=== PATIENT | male | born 1950 | race Caucasian/White ===

== ENCOUNTER 2017-08-06 13:11 | Emergency (ER) | payer MEDICARE, OTHER, SELFPAY ==
[2017-08-06 13:11] VITALS: BP 119/83; PULSE 98; RESP 18; TEMP 36.2; O2SAT 97; BMI 22.1
--- NOTE | 2017-08-06 13:58 | RAD_ITS ---
STUDY: X-RAY - LEFT KNEE REASON FOR EXAM: Male, 67 years old. Injury and pain TECHNIQUE: Four view(s) of the knee were obtained. COMPARISON: None. FINDINGS: The distal femur is unremarkable. The proximal tibia is unremarkable. Normal medial femorotibial compartment. Normal lateral femorotibial compartment. Normal patellofemoral articulation. There is no fullness above the patella. There are marked vascular calcifications. RAD/Knee 4 or More Views IMPRESSION: No acute abnormalities are seen in the left knee. Electronically Signed: Elsa Castellanos MD at 14:43 EST Tel Direct: [phone], Service support ,
--- NOTE | 2017-08-06 14:30 | NURSING ---
NO LW OR POA
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
== END 2017-08-06 15:16 | disposition home or self-care (01) ==
PROVIDERS: Emergency Provider Emergency Medicine; Family Provider Family Medicine; PCP Family Medicine
DX: M25.562 Pain in left knee (principal); R05 Cough; E11.9 Type 2 diabetes mellitus without complications; I10 Essential (primary) hypertension; I73.9 Peripheral vascular disease, unspecified; Z72.0 Tobacco use; Z79.84 Long term (current) use of oral hypoglycemic drugs; Z79.899 Other long term (current) drug therapy
CPT/HCPCS: 73564; 99282

== ENCOUNTER → 2017-09-27 10:58 | Outpatient (CLI) | payer MEDICARE, OTHER, SELFPAY ==
[2017-09-27 12:12] LABS: Absolute Lymphocyte Count 2.06 X10^3/ul (0.83-4.51); Absolute Neutrophil Count 4.4 X10^3/uL (2.0-7.7); Basophil# 0.03 X10^3/uL; Basophil% 0.4 % (0-1); Eosinophil# 0.31 X10^3/uL; Eosinophils% 4.3 % (0-5); Hemoglobin 12.6 g/dl (13.0-16.5); Lymphocyte # 2.06 X10^3/ul (4.0); Lymphocyte % 28.5 % (19-41); Mean Corp Hgb Conc 33.2 g/gl (32-36); Mean Corpuscular Hgb 29.7 pg (27.0-32.0); Mean Corpuscular Volume 89.6 fL (80-94); Monocyte# 0.43 X10^3/uL; Monocyte% 5.9 % (0-10); Neutrophil % 60.8 % (47-70); Platelet Count 184 K/mm3 (150-450); RBC Distribution Width CV 13.8 % (11.6-14.6); RBC Distribution Width SD 45.5 fl (35.1-43.9); Red Blood Count 4.24 M/mm3 (4.6-6.2); White Blood Count 7.2 K/mm3 (4.4-11.0)
[2017-09-27 12:16] LABS: POSITIVE COUNT NO; POSITIVE DIFFERENTIAL NO; POSITIVE MORPHOLOGY NO
[2017-09-27 12:43] LABS: Vitamin D,25 Hydroxy 18.4 ng/mL (29.95-100.01)
[2017-09-27 12:44] LABS: ALB/GLOB Ratio 0.9 RATIO (0.9-2.4); AST(SGOT) 17 U/L (15-37); Alanine Aminotransfer ALT/SGPT 16 U/L (16-61); Albumin, Serum 3.2 g/dL (3.2-5.0); Alkaline Phosphatase 83 U/L (45-117); Anion Gap 7 (5-15); BUN 28 mg/dL (7-18); BUN/Creat Ratio 16.1 RATIO (10-20); Calcium,Total 8.8 mg/dL (8.5-10.1); Chloride 107 mmol/L (98-107); Cholesterol 136 mg/dL (200); Creatinine, Serum 1.74 mg/dL (0.70-1.30); EST Glomerular Filtration Rate 42 mL/min (>60); Est Glom Filt Rate - Afr Amer 50 mL/min (>60); Globulin 3.7 g/dL (2.2-4.2); Glucose 71 mg/dL (74-106); High Density Lipoprotein 30 mg/dL; Potassium 4.4 mmol/L (3.5-5.1); Protein, Total 6.9 g/dL (6.4-8.2); Sodium Level 140 mmol/L (136-145); Triglycerides 251 mg/dL; Very Low Density Lipoprotein 50 mg/dL (5-40)
== END ==
PROVIDERS: Family Provider Family Medicine; PCP Family Medicine; Visit Provider Family Medicine
DX: E11.65 Type 2 diabetes mellitus with hyperglycemia (principal); R63.4 Abnormal weight loss; I10 Essential (primary) hypertension; E55.9 Vitamin D deficiency, unspecified
CPT/HCPCS: 36415; 80053; 80061; 82306; 84443; 85025

== ENCOUNTER 2017-11-10 16:44 | Emergency (ER) | payer OTHER, MEDICARE, SELFPAY ==
[2017-11-10 16:47] VITALS: BP 92/63; PULSE 110; RESP 18; TEMP 36.9; O2SAT 98; BMI 20.2
--- NOTE | 2017-11-10 16:53 | NURSING ---
NO OLD EKGS
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
--- NOTE | 2017-11-10 17:21 | RAD_ITS ---
STUDY: X-RAY CHEST REASON FOR EXAM: Male, 67 years old. Shortness of breath TECHNIQUE: 1 view COMPARISON: None. FINDINGS: Hyperexpansion without consolidation, atelectasis or a substantial pleural effusion. There is no demonstrated pleural abnormality. Normal size heart. Normal mediastinum and shirley. Normal visualized pulmonary arteries. There is atherosclerotic calcification of the aortic arch with tortuosity. Normal visualized thoracic spine. Normal visualized ribs, clavicles, and shoulders. There is no demonstrated abnormality of the visualized soft tissue structures of the upper abdomen. RAD/Chest 1 View (Portable) IMPRESSION: Hyperexpansion without other acute cardiopulmonary findings. Electronically Signed: Tracy Roth MD at 18:24 EDT , Service support ,
--- NOTE | 2017-11-10 17:21 | EKG12_ITS ---
Test Reason : WOUND CHECK Blood Pressure : / mmHG Vent. Rate : 102 BPM Atrial Rate : 102 BPM P-R Int : 150 ms QRS Dur : 066 ms QT Int : 318 ms P-R-T Axes : 071 021 043 degrees QTc Int : 414 ms Sinus tachycardia Otherwise normal ECG Confirmed by TREMAYNE REYES ([id number]), image editor SHERI PERRY ([id number]) on 11/20/2017 6:12:51 PM Referred By: MARIO Confirmed By:TREMAYNE REYES
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
[2017-11-10 17:38] LABS: Absolute Lymphocyte Count 2.68 X10^3/ul (0.83-4.51); Absolute Neutrophil Count 7.3 X10^3/uL (2.0-7.7); Basophil# 0.02 X10^3/uL; Basophil% 0.2 % (0-1); Eosinophil# 0.33 X10^3/uL; Hematocrit 38.5 % (40-54); Hemoglobin 13.3 g/dl (13.0-16.5); Lymphocyte # 2.68 X10^3/ul (4.0); Lymphocyte % 24.1 % (19-41); Mean Corp Hgb Conc 34.5 g/gl (32-36); Mean Corpuscular Hgb 29.6 pg (27.0-32.0); Mean Corpuscular Volume 85.6 fL (80-94); Mean Platelet Vol. 8.8 fl (6.2-12.0); Monocyte# 0.72 X10^3/uL; Monocyte% 6.5 % (0-10); Neutrophil # 7.33 X10^3/uL (2.7-7.7); Neutrophil % 65.8 % (47-70); POSITIVE COUNT NO; POSITIVE DIFFERENTIAL NO; POSITIVE MORPHOLOGY NO; Platelet Count 189 K/mm3 (150-450); RBC Distribution Width CV 13.5 % (11.6-14.6); RBC Distribution Width SD 42.2 fl (35.1-43.9); White Blood Count 11.1 K/mm3 (4.4-11.0)
[2017-11-10 17:53] LABS: Anion Gap 9 (5-15); BUN 48 mg/dL (7-18); BUN/Creat Ratio 23.5 RATIO (10-20); Calcium,Total 10.1 mg/dL (8.5-10.1); Chloride 98 mmol/L (98-107); Creatinine, Serum 2.04 mg/dL (0.70-1.30); EST Glomerular Filtration Rate 35 mL/min (>60); Est Glom Filt Rate - Afr Amer 42 mL/min (>60); Estimated Creatinine Clearance 32.35 ml/min; Glucose 148 mg/dL (74-106); Potassium 5.1 mmol/L (3.5-5.1); Sodium Level 133 mmol/L (136-145)
[2017-11-10] MEDS: 0.9% Normal Saline 1,000 ML 1000 ML IV (17:58)
[2017-11-10] MEDS: Diphth,Pertuss(Acell),Tet Vac 0.5 ML Vial IM (18:01)
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
[2017-11-10] MEDS: 0.9% Normal Saline 1,000 ML 150 ML IV (19:26)
[2017-11-10 19:45] VITALS: BP 147/80; PULSE 99; RESP 16; O2SAT 99
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
[2017-11-10 20:20] VITALS: BP 138/74; PULSE 96; RESP 16; O2SAT 98
== END 2017-11-10 20:43 | disposition home or self-care (01) ==
PROVIDERS: Emergency Provider Emergency Medicine; Family Provider Family Medicine; PCP Family Medicine
DX: I95.9 Hypotension, unspecified (principal); S80.812A Abrasion, left lower leg, initial encounter; I12.9 Hypertensive chronic kidney disease with stage 1 through stage 4 chronic kidney disease, or unspecified chronic kidney disease; E11.22 Type 2 diabetes mellitus with diabetic chronic kidney disease; N18.9 Chronic kidney disease, unspecified; N17.9 Acute kidney failure, unspecified; E78.00 Pure hypercholesterolemia, unspecified; M54.9 Dorsalgia, unspecified; Z72.0 Tobacco use; Z23 Encounter for immunization; Z79.84 Long term (current) use of oral hypoglycemic drugs; Z79.891 Long term (current) use of opiate analgesic; Z79.899 Other long term (current) drug therapy; V43.52XA Car driver injured in collision with other type car in traffic accident, initial encounter; Y93.I9 Activity, other involving external motion; Y92.410 Unspecified street and highway as the place of occurrence of the external cause; Y99.8 Other external cause status
CPT/HCPCS: 70450; 71045; 72125; 80048; 85025; 90471; 90715; 93005; 99285; J7030

== ENCOUNTER → 2017-11-17 15:00 | Outpatient (CLI) | payer MEDICARE, OTHER, SELFPAY ==
--- NOTE | 2017-11-17 15:00 | DT_ITS ---
This patient was seen during an EMR downtime November 13, 2017 - November 20, 2017. This patient may have a combination of paper and electronic documentation or all paper documentation. All documentation is viewable within the e-chart portion of [email or web address] for each patient visit.
[2017-11-21 16:49] LABS: BUN 17 mg/dL (7-18); Creatinine, Serum 1.73 mg/dL (0.70-1.30); EST Glomerular Filtration Rate 42 mL/min (>60); Est Glom Filt Rate - Afr Amer 51 mL/min (>60)
== END ==
PROVIDERS: Visit Provider Family Medicine
DX: N18.3 Chronic kidney disease, stage 3 (moderate) (principal)
CPT/HCPCS: 36415; 82565; 84520

== ENCOUNTER → 2017-11-21 08:03 | Outpatient (CLI) | payer MEDICARE, OTHER, SELFPAY ==
--- NOTE | 2017-11-21 08:11 | CDU_ITS ---
Reason For Study: carotid artery calcification Rt. Velocities/BP Lt. Velocities/BP Prox CCA 75.0/25.8 cm/sec. Prox CCA 75.6/26.4 cm/sec. Mid CCA 93.2/34.6 cm/sec. Mid CCA 76.2/26.4 cm/sec. Dist CCA 82.1/32.8 cm/sec. Dist CCA 79.7/27.0 cm/sec. Prox ICA 48.1/23.5 cm/sec. Prox ICA 65.7/25.2 cm/sec. Mid ICA 75.2/36.7 cm/sec. Mid ICA 70.4/29.3 cm/sec. Dist ICA 85.0/44.0 cm/sec. Dist ICA 62.7/29.9 cm/sec. Rt. ICA/CCA = .9. Lt. ICA/CCA = .9. Prox ECA 70.4/18.2 cm/sec. Prox ECA 82.1/12.9 cm/sec. Rt. Vert. 63.3/24.6 cm/sec. Lt. Vert. 50.4/21.1 cm/sec. Right Extracranial There is intimal thickening but no significant atherosclerotic plaque noted in the right common carotid artery. There is heterogeneous, irregular atherosclerotic plaque noted in the right internal carotid artery. The atherosclerotic plaque causes acoustic shadowing. There is heterogeneous, irregular atherosclerotic plaque noted in the right external carotid artery. Antegrade flow is noted in the right vertebral artery. Left Extracranial There is heterogeneous, smooth atherosclerotic plaque noted in the left common carotid artery. There is heterogeneous, irregular atherosclerotic plaque noted in the left internal carotid artery. The atherosclerotic plaque causes acoustic shadowing. There is heterogeneous, irregular atherosclerotic plaque noted in the left external carotid artery. Antegrade flow is noted in the left vertebral artery. Procedure Carotid Duplex [id number]. The exam was diagnostic. Exam performed in department. Interpretation Summary Mild (<50%) stenosis right extracranial internal carotid. Mild (<50%) stenosis left extracranial internal carotid. However, acoustic shadowing obscures visualization of portions of the left internal carotid artery lumen. Therefore, the degree of stenosis may exceed that based upon velocity criteria alone. In this regard, clinical correlation is advised. Flow within the vertebral arteries is antegrade bilaterally. Ordering Physician: Rolando Shelton Performed By: Luc Cuba RVT
== END ==
PROVIDERS: Family Provider Family Medicine; PCP Family Medicine; Visit Provider Family Medicine
DX: I65.23 Occlusion and stenosis of bilateral carotid arteries (principal)
CPT/HCPCS: 93880

== ENCOUNTER → 2018-01-26 10:32 | Outpatient (CLI) | payer MEDICARE, OTHER, SELFPAY ==
[2018-01-26 12:38] LABS: Hemoglobin A1c 7.2 % (4.2-6.3)
[2018-01-26 12:44] LABS: Anion Gap 8 (5-15); BUN 30 mg/dL (7-18); BUN/Creat Ratio 14.8 RATIO (10-20); Calcium,Total 10.2 mg/dL (8.5-10.1); Chloride 104 mmol/L (98-107); Creatinine, Serum 2.03 mg/dL (0.70-1.30); EST Glomerular Filtration Rate 35 mL/min (>60); Est Glom Filt Rate - Afr Amer 42 mL/min (>60); Glucose 214 mg/dL (74-106); Potassium 4.6 mmol/L (3.5-5.1); Sodium Level 137 mmol/L (136-145)
== END ==
PROVIDERS: Family Provider Family Medicine; PCP Family Medicine; Visit Provider Family Medicine
DX: I10 Essential (primary) hypertension (principal); E11.65 Type 2 diabetes mellitus with hyperglycemia
CPT/HCPCS: 36415; 80048; 83036

== ENCOUNTER → 2018-03-08 12:50 | Outpatient (CLI) | payer MEDICARE, OTHER, SELFPAY ==
--- NOTE | 2018-03-08 12:55 | RAD_ITS ---
STUDY: X-RAY - RIGHT FOOT CLINICAL: Male, 67 years old. Diabetic foot ulcer right great toe TECHNIQUE: 3 view(s) of the foot. COMPARISON: None. FINDINGS: Normal talus, calcaneus, and tarsal bones. Normal visualized subtalar, talonavicular, calcaneocuboid, tarsal and tarsometatarsal articulations. Normal metatarsi. There is degenerative arthrosis of the metatarsophalangeal joint of the hallux . Normal tibial and fibular sesamoid bones. Normal interphalangeal joint of the great toe. Normal phalanges of the great toe. Normal second through fifth metatarsophalangeal joints. Normal interphalangeal joints and phalanges of the lesser toes. There is non specific soft tissue swelling. RAD/Foot min 3 Views IMPRESSION: There is degenerative arthrosis of the metatarsophalangeal joint of the hallux . There is non specific soft tissue swelling. This may related to an infectious process. Electronically Signed: Bladimir Kennedy MD at 21:01 EDT , Service support ,
[2018-03-08 14:22] LABS: Absolute Lymphocyte Count 1.92 X10^3/ul (0.83-4.51); Absolute Neutrophil Count 9.2 X10^3/uL (2.0-7.7); Basophil# 0.02 X10^3/uL; Basophil% 0.2 % (0-1); Eosinophil# 0.09 X10^3/uL; Eosinophils% 0.7 % (0-5); Hematocrit 35.4 % (40-54); Hemoglobin 12.3 g/dl (13.0-16.5); Lymphocyte # 1.92 X10^3/ul (4.0); Lymphocyte % 15.6 % (19-41); Mean Corp Hgb Conc 34.7 g/gl (32-36); Mean Corpuscular Hgb 29.4 pg (27.0-32.0); Mean Corpuscular Volume 84.7 fL (80-94); Monocyte# 1.06 X10^3/uL; Monocyte% 8.6 % (0-10); Neutrophil # 9.15 X10^3/uL (2.7-7.7); Neutrophil % 74.6 % (47-70); Platelet Count 319 K/mm3 (150-450); RBC Distribution Width CV 13.9 % (11.6-14.6); RBC Distribution Width SD 42.2 fl (35.1-43.9); Red Blood Count 4.18 M/mm3 (4.6-6.2); White Blood Count 12.3 K/mm3 (4.4-11.0)
[2018-03-08 14:25] LABS: POSITIVE COUNT NO; POSITIVE DIFFERENTIAL NO; POSITIVE MORPHOLOGY NO
[2018-03-08 14:42] LABS: Erythrocyte Sedimentation Rate 22 mm/hr (0-20)
[2018-03-08 14:52] LABS: Anion Gap 11 (5-15); BUN 27 mg/dL (7-18); BUN/Creat Ratio 13.8 RATIO (10-20); Calcium,Total 10.6 mg/dL (8.5-10.1); Chloride 93 mmol/L (98-107); Creatinine, Serum 1.95 mg/dL (0.70-1.30); EST Glomerular Filtration Rate 37 mL/min (>60); Est Glom Filt Rate - Afr Amer 44 mL/min (>60); Glucose 311 mg/dL (74-106); Potassium 3.6 mmol/L (3.5-5.1); Prealbumin 14.8 mg/dL (20.0-40.0); Sodium Level 134 mmol/L (136-145); Thyroid Stim Hormone (TSH) 0.37 uIU/mL (0.358-3.74)
== END ==
PROVIDERS: Family Provider Family Medicine; PCP Family Medicine; Referring Provider Family Medicine; Visit Provider Family Medicine
DX: E11.621 Type 2 diabetes mellitus with foot ulcer (principal); R63.4 Abnormal weight loss
CPT/HCPCS: 36415; 73630; 80048; 84134; 84443; 85025; 85652; 86140; 87070; 87077; 87186; 87205

== ENCOUNTER 2018-03-18 20:09 | Inpatient (IN) | payer MEDICARE, OTHER, SELFPAY ==
[2018-03-18 20:10] VITALS: BP 133/80; PULSE 113; RESP 17; TEMP 36.8; O2SAT 95; BMI 18.0
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
[2018-03-18 21:27] LABS: Absolute Lymphocyte Count 2.34 X10^3/ul (0.83-4.51); Absolute Neutrophil Count 9.7 X10^3/uL (2.0-7.7); Basophil# 0.03 X10^3/uL; Basophil% 0.2 % (0-1); Eosinophil# 0.13 X10^3/uL; Hematocrit 39.5 % (40-54); Hemoglobin 13.3 g/dl (13.0-16.5); Lymphocyte # 2.34 X10^3/ul (4.0); Lymphocyte % 18.4 % (19-41); Mean Corp Hgb Conc 33.7 g/gl (32-36); Mean Corpuscular Hgb 28.8 pg (27.0-32.0); Mean Corpuscular Volume 85.5 fL (80-94); Mean Platelet Vol. 9.5 fl (6.2-12.0); Monocyte# 0.44 X10^3/uL; Monocyte% 3.5 % (0-10); Neutrophil # 9.74 X10^3/uL (2.7-7.7); Neutrophil % 76.6 % (47-70); POSITIVE COUNT NO; POSITIVE DIFFERENTIAL NO; POSITIVE MORPHOLOGY NO; Platelet Count 257 K/mm3 (150-450); RBC Distribution Width CV 14.3 % (11.6-14.6); RBC Distribution Width SD 44.6 fl (35.1-43.9); Red Blood Count 4.62 M/mm3 (4.6-6.2); White Blood Count 12.7 K/mm3 (4.4-11.0)
[2018-03-18 21:29] LABS: International Normalized Ratio 0.9; Partial Thromboplast Time 26.8 Seconds (24.1-36.2); Prothrombin Time (Protime)PT. 12.4 SECONDS (11.7-14.9)
[2018-03-18 21:37] LABS: Anion Gap 5 (5-15); BUN 34 mg/dL (7-18); BUN/Creat Ratio 19.5 RATIO (10-20); Calcium,Total 10.2 mg/dL (8.5-10.1); Chloride 100 mmol/L (98-107); Creatinine, Serum 1.74 mg/dL (0.70-1.30); EST Glomerular Filtration Rate 42 mL/min (>60); Est Glom Filt Rate - Afr Amer 50 mL/min (>60); Estimated Creatinine Clearance 32.76 ml/min; Glucose 344 mg/dL (74-106); Potassium 4.8 mmol/L (3.5-5.1); Sodium Level 135 mmol/L (136-145)
[2018-03-18 22:23] VITALS: RESP 18; O2SAT 98
--- NOTE | 2018-03-18 23:13 | HP.PCM_ITS ---
Problem List (1) Necrosis of toe Status: Acute (2) Diabetes Status: Chronic (3) CKD (chronic kidney disease) stage 3, GFR 30-59 ml/min Status: Chronic History of Present Illness Date of Admission: 03/18/18 Chief Complaint: Wound of right big toe The patient is a 67 year old M with a significant history of diabetes; hypertension; PAD status post bilateral lower extremity vascular surgery; smoker who presents with 2 weeks history of a wound of his right big toe that has progressively gotten worse. Reportedly a couple of months ago patient bumped his right toe into something. A wound developed on his right big toe which eventually healed. However last week; he once again bumped his toe into something. A tiny wound developed. But this wound has progressively gotten worse and it has turned black. His step daughter who is a nurse has been dressing the wound. Per ED doctors reports patient was getting ready to get into a wound clinic. Outpatient patient was started on clindamycin p.o. Patient has pain in his right big toe. He rates the severity of his pain as 8- 10. Elevating his leg helps with the pain; and dangling it worsens the pain. Patient reports that before this wound developed he had no feelings in his foot. He reports a home temperature of 101; and chills. Further he reports a spinning sensation whiles at home. He denies any nausea or vomiting. Past Medical History Past Medical History (Chronic Problems): Chronic Problems (Last Updated 03/19/18 @ 05:39 by Willi Cruz MD) Diabetes (Chronic) CKD (chronic kidney disease) stage 3, GFR 30-59 ml/min (Chronic) Medical History: Medical History (Last Updated 03/19/18 @ 05:39 by Willi Cruz MD) PAD (peripheral artery disease) I73.9 Allergies No Known Allergies Allergy (Verified 03/18/18 20:09) Home Medications: Ambulatory Orders Medication Instructions Recorded Atorvastatin Calcium [Lipitor] 40 mg PO QHS 02/14/15 Cholecalciferol (Vitamin D3) 1,000 units PO DAILY 02/14/15 [D3-2000] Gabapentin [Neurontin] 300 mg PO TID 02/14/15 Lisinopril/Hydrochlorothiazide 1 tablet PO DAILY 02/14/15 [Zestoretic 20/12.5 Tablet] Metformin HCl [Glucophage] 1,000 mg PO BIDCM 02/14/15 glipiZIDE [Glucotrol] 10 mg PO DAILY 02/14/15 Clindamycin HCl 300 mg PO TID 03/18/18 Escitalopram Oxalate [Lexapro] 10 mg PO DAILY 03/18/18 Surgical History: - - Carpal tunnel surgery; bilateral vascular surgery of lower extremities Lives: With Family Smoking Status: Current every day smoker Tobacco Use: Cigarettes Alcohol: None - *Family History Maternal History Items: Diabetes Paternal History Items: Diabetes, Heart Disease Review of Systems Constitutional: Reports: Chills, Fever. Denies: Weight Change HEENT: Denies: Head Aches, Sinus Congestion, Sinus Drainage Cardiovascular: Denies: Chest Pain, Palpitations Respiratory: Denies: Cough, Shortness of breath at rest, Sputum production Gastrointestinal: Denies: Abdominal Pain, Nausea, Vomiting Genitourinary: Denies: Dysuria Musculoskeletal: Denies: Joint Pain - Right big toe, Joint Tenderness - Mild at right big toe. Skin: Denies: Rash, Wounds Neurological: Denies: Numbness, Tingling, Focal weakness Psychiatric: Denies: Anxiety, Depression, Homicidal Ideations, Suicidal Ideations Hematologic/ Lymphatic: Denies: Easy Bruising, Easy Bleeding VTE Information - Inpt Only VTE Present on Admission: No VTE Mechan Device Prophylaxis: None VTE Pharm Prophylaxis ordered?: Yes Patient Problems: Active and Suspected Problems (Last Updated 03/19/18 @ 05:39 by Willi Cruz MD) Skin ulcer of right great toe with necrosis of muscle (Acute) Necrosis of toe (Acute) - Physical Exam General: Alert, Oriented x3, Cooperative HEENT: Atraumatic, PERRLA, EOMI, Normocephalic Neck: Supple, No JVD, Negative Carotid Bruits Lungs: Diminished Cardiovascular: No murmurs, Tachycardic Abdomen: Bowel Sounds Present, Soft, Non Tender Extremities: No edema, - - Right big toe necrotic with proximal wound. Skin: Rash Present - On bilateral legs Musculoskeletal: Tenderness - Mild at right big toe. Lymphatic: No Cervical, Supraclavicular, or Inguinal Adenopathy Neurological: Cranial nerves II-XII grossly intact Psych/Mental Status: Normal Affect, Appropriate Vital Signs Temp Pulse Resp BP Pulse Ox 98.3 F 113 H 18 133/80 H 98 03/18/18 20:10 03/18/18 20:10 03/18/18 22:23 03/18/18 20:10 03/18/18 22:23 Oxygen Delivery Method Room Air Weight: 57 kg Body Mass Index (BMI) 18.0 Laboratory Tests Past 24 Hrs 03/18/18 03/18/18 03/18/18 21:07 21:07 21:07 WBC 12.7 H RBC 4.62 Hgb 13.3 Hct 39.5 L MCV 85.5 MCH 28.8 MCHC 33.7 RDW 14.3 RDW Differential 44.6 H Plt Count 257 MPV 9.5 Immature Gran % (Auto) 0.300 Neut % (Auto) 76.6 H Lymph % (Auto) 18.4 L [place] % (Auto) 3.5 Eos % (Auto) 1.0 Baso % (Auto) 0.2 Absolute Neuts (auto) 9.7 H Absolute Lymphs (auto) 2.34 Total Counted Not Reportable PT 12.4 INR 0.9 APTT 26.8 Sodium 135 L Potassium 4.8 Chloride 100 Carbon Dioxide 30.0 Anion Gap 5 BUN 34 H Creatinine 1.74 H Estim Creat Clear Calc 32.76 Est GFR (MDRD) Af Amer 50 L Est GFR (MDRD) Non-Af 42 L BUN/Creatinine Ratio 19.5 Glucose 344 H Calcium 10.2 H Assessment/Plan All Active Problems (Last Updated 03/19/18 @ 05:39 by Willi Cruz MD) Skin ulcer of right great toe with necrosis of muscle (Acute) Necrosis of toe (Acute) The patient is a 67 year old M with a significant history of diabetes; hypertension; PAD status post bilateral lower extremity vascular surgery; smoker who presents with 2 weeks history of a wound of his right big toe that has progressively gotten worse and now is necrotic.. Necrotic diabetic wound of right great toe WBC mildly elevated at 12.7. With neutrophilic predominance. CRP unremarkable. ESR ordered. Patient received Ancef at emergency department Vancomycin and Zosyn ordered. Pharmacy to dose Vanco because of poor renal function. Podiatry consulted for possible source management. Infectious disease consulted to help optimize management. 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 If considering MRI with contrast consider consulting nephrology due to risk of nephrogenic systemic fibrosis in the setting of CKD. Bilateral lower extremity Doppler ordered. Trend CBC and BMP. Diabetes mellitus Blood glucose uncontrolled at time of admission Metformin held since he is just starting his hospitalization Basal and correction scale insulin ordered. Consider prandial glucose if necessary. A1c ordered. Hypertension Blood pressure fairly controlled on admission Hydrochlorothiazide continued. Tobacco abuse Counseled Nicotine patch ordered. Inpatient consult for smoking cessation. Protein calorie malnutrition BMI of 17.8 Glucerna shake 4 times per day. Nutritional consult PAD status post bilateral lower arterial surgery Bilateral lower extremity Doppler ordered. DVT prophylaxis Subcutaneous heparin. Code Visit Inpatient E&M: 93335 Init Hosp L3
[2018-03-18] MEDS: Cefazolin 1 GM/50 ML BAG IV (23:33)
--- NOTE | 2018-03-18 23:36 | ED.VISSUMM ---
- ER Visit Summary Date of Service: 03/18/18 Chief Complaint: Black big toe History of Present Illness: The patient is a 67 M who presents with necrosis of his right great toe that has been getting worse over the past few days. Daughter states that the patient had an abrasion on his proximal phalanx of his right great toe over the dorsal aspect 2 weeks ago. Daughter states the area became red and appeared to be infected. Daughter states that the blackness has been getting progressively worse over the past couple days. Patient states the pain is worse when he wraps it up and has pressure on the great toe. Patient states the pain improves when he elevates his foot. Patient admits to some decreased sensation over the right great toe. Patient also admits to some dizziness and lightheadedness. Patient admits to some chills with a temperature of 100.1. Physical Examination: Vital signs are stable. Patient is afebrile here. Patient is a mild tachycardia of 113. Oral mucosa is pink and moist. Neck is supple. Trachea is midline. There is no JVD noted. Heart was regular rate and rhythm. Lungs are clear and equal bilaterally. Abdomen is soft and nontender. Cranial nerves II through XII are intact. There are no focal motor deficits noted. Patient does have decreased sensation over the right great toe. Skin is warm and dry. There is an ulceration over the dorsal aspect of the right great toe over the proximal phalanx. There is no purulent drainage noted. There is some mild serous drainage. The rest of the right great toe is black and necrotic. The remaining physical exam is within normal limits. Test Results: Leukocytosis of 12.7. BUN was slightly elevated at 34 and creatinine was slightly elevated at 1.74. Glucose was 344. Patient was started on Ancef. Wound culture was obtained. X-ray of the right foot does not show any evidence of osteomyelitis. Emergency Department Course and Treatment: Patient was given a dose of Ancef here in the emergency department. Case was discussed with Dr. Cruz. He will admit the patient to the hospital. Patient understood and was agreeable with the plan. All questions were answered. Disposition: Admit to hospital Impression: Necrosis right great toe This note was generated with [employer] dictation software. It may contain incorrect words, spelling, and punctuation that were not noted in review of the chart prior to signing ED Disposition - Plan for ED Patient: Disposition: Acute Care Hospital [facility] Chief Complaint: Wound Diagnosis: Skin ulcer of right great toe with necrosis of muscle Referrals: Rolando Shelton MD [Primary Care Provider] -
[2018-03-19 00:07] VITALS: RESP 16; O2SAT 98
[2018-03-19 00:50] VITALS: BMI 17.7; BMI 17.8
--- NOTE | 2018-03-19 01:08 | NURSING ---
Pt has on wedding ring on left hand and a ring on right hand along with a cross necklace and watch that he states he will give to his daughter, Calli Encarnacion, when she visits him on 03/19/18.
[2018-03-19 01:18] LABS: CRP < 2.90 mg/L (0.0-3.0)
[2018-03-19 01:26] VITALS: BP 126/77; PULSE 93; RESP 20; TEMP 36.8; O2SAT 96
[2018-03-19] MEDS: 0.9% Normal Saline 1,000 ML 75 ML IV (02:12)
[2018-03-19 02:35] LABS: Bedside Glucose 145 mg/dL (70-110)
[2018-03-19] MEDS: Morphine 2 MG/ML Syringe IV ×3 (02:50→16:32)
[2018-03-19] MEDS: 0.9% NaCl Peripheral Flush Adult/Peds IV (02:51)
--- NOTE | 2018-03-19 03:15 | PCM.RX.CS ---
Consult Pharmacy has been consulted to manage selected antiobiotic: Vancomycin Type of Consult: New start Suspected Infection: Skin/Soft tissue Prior Doses of Antibiotics Received/Current Regimen: Medications Vancomycin HCl 750 mg/ Sodium (Chloride) 265 mls @ 250 mls/hr IV Q24H JOSE Discontinued Medications Vancomycin HCl 750 mg/ Sodium (Chloride) 265 mls @ 250 mls/hr IV X1 ONE Stop: 03/19/18 03:03 Last Admin: 03/19/18 02:50 Dose: 250 mls/hr Labs: Sodium 135 mmol/L (136-145) L 03/18/18 21:07 Potassium 4.8 mmol/L (3.5-5.1) 03/18/18 21:07 Chloride 100 mmol/L (98-107) 03/18/18 21:07 Carbon Dioxide 30.0 mmol/L (21.0-32.0) 03/18/18 21:07 Anion Gap 5 (5-15) 03/18/18 21:07 BUN 34 mg/dL (7-18) H 03/18/18 21:07 Creatinine 1.74 mg/dL (0.70-1.30) H 03/18/18 21:07 Est GFR (MDRD) Af Amer 50 mL/min (>60) L 03/18/18 21:07 Est GFR (MDRD) Non-Af 42 mL/min (>60) L 03/18/18 21:07 BUN/Creatinine Ratio 19.5 RATIO (10-20) 03/18/18 21:07 Glucose 344 mg/dL (74-106) H 03/18/18 21:07 Weight used for dosin.2 kg Estimated Creatinine Clearance: 33 Goal Trough: 15-20 mcg/mL Pharmacy Plan for Drug Dosing: Pharmacy Service will continue to monitor and adjust dosing as required. Follow-Up Labs: Trough Vancomycin Labs to be done on [date and time ordered]: 03/21/18 @[id number]
[2018-03-19] MEDS: Piperacil/Tazobactam 3.375 GM/50 ML ML IV ×2 (04:37→14:18)
[2018-03-19] MEDS: Heparin Injection (Vial) 5,000 UNIT/ML VIAL 5000 UNIT SC ×2 (06:24→14:18)
[2018-03-19 06:31] LABS: Bedside Glucose 136 mg/dL (70-110)
[2018-03-19 06:55] LABS: Absolute Neutrophil Count 5.9 X10^3/uL (2.0-7.7); Basophil# 0.03 X10^3/uL; Basophil% 0.3 % (0-1); Eosinophil# 0.21 X10^3/uL; Hematocrit 36.3 % (40-54); Hemoglobin 12.4 g/dl (13.0-16.5); Lymphocyte % 34.8 % (19-41); Mean Corp Hgb Conc 34.2 g/gl (32-36); Mean Corpuscular Hgb 29.5 pg (27.0-32.0); Mean Corpuscular Volume 86.2 fL (80-94); Mean Platelet Vol. 9.5 fl (6.2-12.0); Monocyte# 0.53 X10^3/uL; Monocyte% 5.1 % (0-10); Neutrophil # 5.89 X10^3/uL (2.7-7.7); Neutrophil % 56.9 % (47-70); Platelet Count 274 K/mm3 (150-450); RBC Distribution Width CV 14.2 % (11.6-14.6); RBC Distribution Width SD 43.8 fl (35.1-43.9); Red Blood Count 4.21 M/mm3 (4.6-6.2); White Blood Count 10.4 K/mm3 (4.4-11.0)
[2018-03-19 06:59] LABS: POSITIVE COUNT NO; POSITIVE DIFFERENTIAL NO; POSITIVE MORPHOLOGY NO
[2018-03-19 07:24] LABS: Anion Gap 6 (5-15); BUN 29 mg/dL (7-18); CRP < 2.90 mg/L (0.0-3.0); Calcium,Total 9.8 mg/dL (8.5-10.1); Chloride 105 mmol/L (98-107); Creatinine, Serum 1.32 mg/dL (0.70-1.30); EST Glomerular Filtration Rate 57 mL/min (>60); Est Glom Filt Rate - Afr Amer 69 mL/min (>60); Estimated Creatinine Clearance 42.58 ml/min; Glucose 132 mg/dL (74-106); Potassium 4.7 mmol/L (3.5-5.1); Sodium Level 139 mmol/L (136-145)
--- NOTE | 2018-03-19 08:28 | NURSING ---
wound photo: right great toe
[2018-03-19] MEDS: Gabapentin 300 MG Capsule PO ×3 (10:03→18:26)
[2018-03-19] MEDS: Glucerna Shake 120 ML LIQUID PO ×3 (10:03→18:26)
[2018-03-19] MEDS: Lisinopril 20 MG Tablet PO (10:03)
[2018-03-19] MEDS: Escitalopram Oxalate 10 MG Tablet PO (10:03)
[2018-03-19] MEDS: HYDROCHLOROTHIAZIDE 12.5 MG CAPSULE PO (10:03)
[2018-03-19] MEDS: oxyCODONE 5 MG Tablet PO ×3 (10:04→20:26)
[2018-03-19] MEDS: Senna Tablet 1 TABLET PO (10:04)
[2018-03-19 10:10] VITALS: BP 124/65; PULSE 95; RESP 18; TEMP 36.8; O2SAT 98
--- NOTE | 2018-03-19 10:50 | CASEMGMT ---
RN CM Face to Face with patient for initial transition planning/care coordination assessment. RN CM introduced self and role at [facility]. Patient sitting in chair, alert and oriented. Patient willing to participate in assessment and is able to answer all questions appropriately. Care providers, pharmacy, and demographics verified. Patient lives with daughter in 1 story home with ramp to enter home. Patient states he is independent at home. Patient has raised toilet seat, crutches, walker, and wheelchair at home. Patient wishes to discharge home, denies need for home health at this time, states daughter is a nurse. Patient states he has no further needs or concerns at this time. CM to follow for discharge planning needs that may arise. Disposition Plan: Patient to discharge home with family support and follow-up plans in place. Gretel ALVAREZ, RN, CM
[2018-03-19 11:09] VITALS: O2SAT 98
--- NOTE | 2018-03-19 12:17 | PCM.PROGNOTE ---
Patient Problems: Active and Suspected Problems (Last Updated 03/19/18 @ 05:39 by Willi Cruz MD) Skin ulcer of right great toe with necrosis of muscle (Acute) Necrosis of toe (Acute) Subjective: This 67-year-old diabetic male with a history of PAD was consulted to podiatry after being admitted through the emergency room for necrotic right great toe. The patient says overall he feels well. He says that he bumped his toe about 6 months ago and had a small wound that he was able to heal up. He says approximately 3 weeks ago he was walking with no shoes on and stubbed his toe again. Since then he has noticed the toe becoming black. He has been keeping the area dressed but has not done much to treat on his own. He relates that he has had vascular stenting done in his lower extremity approximately 20 years ago. He originally was going to be seen at the wound center this week, however he did not feel he should wait any longer and came to the ER and was admitted. He currently denies any feelings of nausea, vomiting, fever, or chills. - Physical Exam General: Alert, Oriented x3, Cooperative, No apparent distress Extremities: No Calf Tenderness - Negative Tom and Olivares sign bilateral, Diminished Peripheral Pulses, - - Capillary refill time is greater than 5 seconds to distal digits of the right foot Skin: Ulcer/ Wound - Necrotic halux of right foot. Dry gangrene involves tentire hallux circumferentially. There is no extending or streaking cellulitis. No purluence appreciated. Musculoskeletal: Tenderness - Very silght tenderness to right hallux Neurological: - - Epicritic sensation absent right lower extremity Psych/Mental Status: Normal Affect, Appropriate Vital Signs Temp Pulse Resp BP Pulse Ox 98.2 F 95 18 124/65 H 98 03/19/18 10:10 03/19/18 10:10 03/19/18 10:10 03/19/18 10:10 03/19/18 11:09 Oxygen Delivery Method Room Air Weight: 56.2 kg Body Mass Index (BMI) 17.7 Intake and Output for Last 24 Hours 03/17/18 03/18/18 03/19/18 23:59 23:59 23:59 Intake Total 488 / 488 Balance 488 / 488 Microbiology Past 72 Hours 03/18/18 21:10 Gram Stain - Final Wound Abcess - Toe Laboratory Tests Past 24 Hrs 03/18/18 03/18/18 03/18/18 21:07 21:07 21:07 WBC 12.7 H RBC 4.62 Hgb 13.3 Hct 39.5 L MCV 85.5 MCH 28.8 MCHC 33.7 RDW 14.3 RDW Differential 44.6 H Plt Count 257 MPV 9.5 Immature Gran % (Auto) 0.300 Neut % (Auto) 76.6 H Lymph % (Auto) 18.4 L [place] % (Auto) 3.5 Eos % (Auto) 1.0 Baso % (Auto) 0.2 Absolute Neuts (auto) 9.7 H Absolute Lymphs (auto) 2.34 Total Counted Not Reportable PT 12.4 INR 0.9 APTT 26.8 Sodium 135 L Potassium 4.8 Chloride 100 Carbon Dioxide 30.0 Anion Gap 5 BUN 34 H Creatinine 1.74 H Estim Creat Clear Calc 32.76 Est GFR (MDRD) Af Amer 50 L Est GFR (MDRD) Non-Af 42 L BUN/Creatinine Ratio 19.5 Glucose 344 H Hemoglobin A1c Calcium 10.2 H C-React Prot Ext Range 03/18/18 03/19/18 03/19/18 21:07 06:15 06:15 WBC 10.4 RBC 4.21 L Hgb 12.4 L Hct 36.3 L MCV 86.2 MCH 29.5 MCHC 34.2 RDW 14.2 RDW Differential 43.8 Plt Count 274 MPV 9.5 Immature Gran % (Auto) 0.900 Neut % (Auto) 56.9 Lymph % (Auto) 34.8 [place] % (Auto) 5.1 Eos % (Auto) 2.0 Baso % (Auto) 0.3 Absolute Neuts (auto) 5.9 Absolute Lymphs (auto) 3.60 Total Counted Not Reportable PT INR APTT Sodium 139 Potassium 4.7 Chloride 105 Carbon Dioxide 28.0 Anion Gap 6 BUN 29 H Creatinine 1.32 H Estim Creat Clear Calc 42.58 Est GFR (MDRD) Af Amer 69 Est GFR (MDRD) Non-Af 57 L BUN/Creatinine Ratio 22.0 H Glucose 132 H Hemoglobin A1c Calcium 9.8 C-React Prot Ext Range < 2.90 03/19/18 03/19/18 06:15 06:15 WBC RBC Hgb Hct MCV MCH MCHC RDW RDW Differential Plt Count MPV Immature Gran % (Auto) Neut % (Auto) Lymph % (Auto) [place] % (Auto) Eos % (Auto) Baso % (Auto) Absolute Neuts (auto) Absolute Lymphs (auto) Total Counted PT INR APTT Sodium Potassium Chloride Carbon Dioxide Anion Gap BUN Creatinine Estim Creat Clear Calc Est GFR (MDRD) Af Amer Est GFR (MDRD) Non-Af BUN/Creatinine Ratio Glucose Hemoglobin A1c 8.0 H Calcium C-React Prot Ext Range < 2.90 POC Glucose 03/19/18 03/19/18 06:23 02:17 POC Glucose 136 H 145 H Medical Necessity - Tobacco Use Smoking Status: Current every day smoker Tobacco Use: Cigarettes Assessment/Plan All Active Problems (Last Updated 03/19/18 @ 05:39 by Willi Cruz MD) Skin ulcer of right great toe with necrosis of muscle (Acute) Necrosis of toe (Acute) Dry Gangrene right halux DM PAD Other comorbidities Patient was examined and evaluated bedside. WBC is 10.4. Vital signs are stable. Blood cultures and right great toe cultures still pending. 3 View x rays taken of right foot show no signs of acute osseous destruction and no soft tissue emphysema. LEAS studies were performed that show decreased NAHED to a level that would suggest moderate vascular issues. I discussed this case with Dr. Vazquez. Since this patient is stable, I recommend this patient has a vascular surgery consult and workup prior to any further intervention taking place with the right hallux. He is in agreement with this plan. Patient may be transferred today. Right hallux was painted with betadine and then dressed with dry sterile dressing. Patient will continue to be monitored by podiatry while still in house.
[2018-03-19] MEDS: Insulin Lispro 100 UNIT/ML INSULN.PEN SQ ×2 (12:26→16:32)
[2018-03-19 12:36] LABS: Bedside Glucose 383 mg/dL (70-110)
--- NOTE | 2018-03-19 12:46 | CHAPLAIN ---
Type of Pastoral Visit _x__ Initial Visit ___ Follow-up Visit ___ On-call Visit ___ General Patient Visit ___ Spiritual Assessment ___ Family Conference ___ Bereavement ___ Rapid Response ___ Code Blue ___ Other (describe below) Pastoral Care Referral From _x__ Patient ___ Family ___ Nurse ___ Physician ___ Magneto Repairer ___ Lay Out Carpenter ___ Other (describe below) Sacrament/Intervention _x__ Active listening ___ Anointing ___ Orthodoxy ___ Bereavement ___ Communion ___ Marie exploration ___ _x__ Life review _x__ Prayer ___ Reconciliation ___ Sacrament of Sick _x__ Supportive presence ___ Wedding ___ Other (describe below) Pastoral Comments patient speaks of 's earlier this year; pt waiting for decisions to be made about his toes and just hopes to have relief; pt open to future visits from spiritual care
[2018-03-19 14:20] VITALS: BP 94/61; PULSE 99; RESP 18; TEMP 36.8; O2SAT 98
--- NOTE | 2018-03-19 15:12 | PCM.HP.ID ---
Problem List (1) Necrosis of toe Status: Acute Reason for Consult: necrotic toe Consulted by: Dr. Vazquez History of Present Illness: The patient is a 67 year old M with PAD, DM who presented with R 1st toe turning black for past few days. He hurt his toe several months ago, and it took a long time to heal. A week ago, he tripped on carpet and opened a small wound on toe. Had been relatively stable with some redness, swelling, and bloody drainage. He was given a 10 day course of clinda tid, which finished yesterday without improvement. Toe turned black, had chills/fever, and came to hospital. Started on vanc/zosyn. Full ROS performed and neg except as noted above. - Medical History Past Medical History (Chronic Problems): Chronic Problems (Last Updated 03/19/18 @ 05:39 by Willi Cruz MD) Diabetes (Chronic) CKD (chronic kidney disease) stage 3, GFR 30-59 ml/min (Chronic) Allergies/Adverse Reactions: Allergies No Known Allergies Allergy (Verified 03/18/18 20:09) Home Medications: Ambulatory Orders Medication Instructions Recorded Atorvastatin Calcium [Lipitor] 40 mg PO QHS 02/14/15 Cholecalciferol (Vitamin D3) 1,000 units PO DAILY 02/14/15 [D3-2000] Gabapentin [Neurontin] 300 mg PO TID 02/14/15 Lisinopril/Hydrochlorothiazide 1 tablet PO DAILY 02/14/15 [Zestoretic 20/12.5 Tablet] Metformin HCl [Glucophage] 1,000 mg PO BIDCM 02/14/15 glipiZIDE [Glucotrol] 10 mg PO DAILY 02/14/15 Clindamycin HCl 300 mg PO TID 03/18/18 Escitalopram Oxalate [Lexapro] 10 mg PO DAILY 03/18/18 - Social History Tobacco Use: cigarettes Vital Signs Temp Pulse Resp BP Pulse Ox 98.2 F 95 18 124/65 H 98 03/19/18 10:10 03/19/18 10:10 03/19/18 10:10 03/19/18 10:10 03/19/18 11:09 Oxygen Delivery Method Room Air Weight: 56.2 kg Body Mass Index (BMI) 17.7 Microbiology Past 72 Hours 03/18/18 21:10 Gram Stain - Final Wound Abcess - Toe Laboratory Tests Past 24 Hrs 03/18/18 03/18/18 03/18/18 21:07 21:07 21:07 WBC 12.7 H RBC 4.62 Hgb 13.3 Hct 39.5 L MCV 85.5 MCH 28.8 MCHC 33.7 RDW 14.3 RDW Differential 44.6 H Plt Count 257 MPV 9.5 Immature Gran % (Auto) 0.300 Neut % (Auto) 76.6 H Lymph % (Auto) 18.4 L [place] % (Auto) 3.5 Eos % (Auto) 1.0 Baso % (Auto) 0.2 Absolute Neuts (auto) 9.7 H Absolute Lymphs (auto) 2.34 Total Counted Not Reportable PT 12.4 INR 0.9 APTT 26.8 Sodium 135 L Potassium 4.8 Chloride 100 Carbon Dioxide 30.0 Anion Gap 5 BUN 34 H Creatinine 1.74 H Estim Creat Clear Calc 32.76 Est GFR (MDRD) Af Amer 50 L Est GFR (MDRD) Non-Af 42 L BUN/Creatinine Ratio 19.5 Glucose 344 H Hemoglobin A1c Calcium 10.2 H C-React Prot Ext Range 03/18/18 03/19/18 03/19/18 21:07 06:15 06:15 WBC 10.4 RBC 4.21 L Hgb 12.4 L Hct 36.3 L MCV 86.2 MCH 29.5 MCHC 34.2 RDW 14.2 RDW Differential 43.8 Plt Count 274 MPV 9.5 Immature Gran % (Auto) 0.900 Neut % (Auto) 56.9 Lymph % (Auto) 34.8 [place] % (Auto) 5.1 Eos % (Auto) 2.0 Baso % (Auto) 0.3 Absolute Neuts (auto) 5.9 Absolute Lymphs (auto) 3.60 Total Counted Not Reportable PT INR APTT Sodium 139 Potassium 4.7 Chloride 105 Carbon Dioxide 28.0 Anion Gap 6 BUN 29 H Creatinine 1.32 H Estim Creat Clear Calc 42.58 Est GFR (MDRD) Af Amer 69 Est GFR (MDRD) Non-Af 57 L BUN/Creatinine Ratio 22.0 H Glucose 132 H Hemoglobin A1c Calcium 9.8 C-React Prot Ext Range < 2.90 03/19/18 03/19/18 06:15 06:15 WBC RBC Hgb Hct MCV MCH MCHC RDW RDW Differential Plt Count MPV Immature Gran % (Auto) Neut % (Auto) Lymph % (Auto) [place] % (Auto) Eos % (Auto) Baso % (Auto) Absolute Neuts (auto) Absolute Lymphs (auto) Total Counted PT INR APTT Sodium Potassium Chloride Carbon Dioxide Anion Gap BUN Creatinine Estim Creat Clear Calc Est GFR (MDRD) Af Amer Est GFR (MDRD) Non-Af BUN/Creatinine Ratio Glucose Hemoglobin A1c 8.0 H Calcium C-React Prot Ext Range < 2.90 - Other Studies Radiology: [] reviewed Other Studies: [] Route of nutrition/ use of supplements: [] Nutritional Intake: [] IV Site: [] Mckinney Catheter: [] - Physical Exam General: Alert, Oriented x3, Cooperative, No apparent distress HEENT: Atraumatic, PERRLA, EOMI Neck: Supple, No Nodes Lungs: Clear to auscultation, Normal air movement Cardiovascular: Regular rate, Regular Rhythm Abdomen: Soft, Non Tender, Non-Distended Extremities: No edema, Diminished Peripheral Pulses Skin: Ulcer/ Wound - R 1st toe with diffuse dry gangrene, some surrounding redness IV Site: Peripheral, without redness Musculoskeletal: No Tenderness to Palpation of Joints or Extremities - Assessment/Plan Antibiotics: [] Assessment/Plan: [] Active and Suspected Problems (Last Updated 03/19/18 @ 05:39 by Willi Cruz MD) Skin ulcer of right great toe with necrosis of muscle (Acute) Necrosis of toe (Acute) R 1st toe gangrene - cx here with 2+ GPC and some GNR on gram stain. Recent h/o MRSA (+) cx on 03/08 which was R to clinda. Cont vanc/zosyn for now. Plan is for vascular eval. Will follow, thank you, d/w primary team.
--- NOTE | 2018-03-19 15:23 | LEAS ---
Arterial Study - Arterial Study Arterial Study: Bilateral lower extremity noninvasive arterial exam at rest Patient with gangrene of the right great toe Patient with reported history of peripheral arterial occlusive disease and remote bilateral lower extremity bypass Right lower extremity The right PT and DP ankle-brachial indices at rest are 0.75 and 0.64.. The right posterior tibial and dorsalis pedis waveforms are biphasic. Volume pulse recordings failed to demonstrate amplification at the calf. Ankle waveforms are moderately depressed all digital waveforms are significantly depressed Left lower extremity The left PT and DP ankle-brachial indices at rest are 0.72 and 0.67. The Doppler waveforms are biphasic left posterior tibial and dorsalis pedis. Volume pulse recordings failed to demonstrate amplification the calf the ankle waveforms and digital waveforms both moderately depressed. Impression Right lower extremity PT and DP ankle-brachial indices would be in the range of vascular claudication. Findings would suggest occlusion of the right superficial femoral artery. Digital waveforms on the right are significantly depressed consistent with distal small vessel disease. The left lower extremity ankle-brachial indices again are consistent with vascular claudication and occlusion of the superficial femoral artery. Digital waveforms are slightly better maintained on the left but still consistent with distal small vessel disease. Fareed Mayers M.D., F.A.C.S.
--- NOTE | 2018-03-19 15:51 | NURSING ---
report called to Noah Howell for patient transfer. report given to CYN Barroso.
[2018-03-19 17:11] LABS: Bedside Glucose 317 mg/dL (70-110)
[2018-03-19 20:28] VITALS: BP 113/67; PULSE 90; RESP 18; TEMP 36.3; O2SAT 96
--- NOTE | 2018-03-22 07:14 | PCM.DC.SUM ---
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 #2 peripheral vascular disease secondary to type 2 diabetes #3 type 2 diabetes-under poor control #4 chronic kidney disease stage III secondary to type 2 diabetes - Secondary Discharge Diagnosis Chronic Problems (Last Updated 03/19/18 @ 05:39 by Willi Cruz MD) Diabetes (Chronic) CKD (chronic kidney disease) stage 3, GFR 30-59 ml/min (Chronic) Hospital Course and Treatment Consultations 03/19/18 00:49 Consult: Onc/Wound/pharmaceutical assistant Routine Comment: Operations: None Procedures: None Summary of Care Provided: The patient is a 67 year old M was seen in the emergency room at [facility] with chief complaint of blackness of his right great toe over period of several days. Evaluation of the patient included lab work which showed a white blood cell count of 12.7, BUN was elevated at 34 and creatinine was elevated at 1.74, glucose was 344. Patient was given IV Ancef in the emergency room, wound cultures were obtained, x-ray of the right foot did not show any evidence of osteomyelitis. Hospitalist service admitted the patient to [place] [id number], he was seen in consultation by podiatry, due to his history of peripheral vascular disease, podiatry felt that a vascular surgery consultation was needed, he had been seen previously at [facility], podiatry felt uncomfortable operating on the patient without vascular guidance. Due to this fact, patient was transferred to [facility] for further care. Patient was seen and examined on 03/19/18: On examination he appeared in good health and spirits. Vital signs as documented. Skin warm and dry and without overt rashes. Neck without JVD. Lungs clear. Heart exam notable for regular rhythm, normal sounds and absence of murmurs, rubs or gallops. Abdomen unremarkable and without evidence of organomegaly, masses, or abdominal aortic enlargement. Extremities: The right great toe is necrotic with evidence of dry gangrene. Neuro: Cranial nerves II through XII are grossly intact, there are no focal motor deficits noted. Psych: Patient was alert and oriented x3 and in no distress, he did not appear depressed or anxious On 03/19/18, patient was transferred to [facility] for further care.. - Physical Exam Vital Signs Temp Pulse Resp BP Pulse Ox 97.4 F L 90 18 113/67 96 03/19/18 20:28 03/19/18 20:28 03/19/18 20:28 03/19/18 20:28 03/19/18 20:28 Oxygen Delivery Method Room Air Weight: 56.2 kg Body Mass Index (BMI) 17.7 Microbiology Past 72 Hours 03/19/18 01:21 Blood Culture - Preliminary Blood Culture (Wb) - Anticubital Right No growth in 48 hours. 03/19/18 01:13 Blood Culture - Preliminary Blood Culture (Wb) - Left Hand No growth in 48 hours. 03/18/18 21:10 Gram Stain - Final Wound Abcess - Toe Wound Culture - Final Enterococcus faecalis Coag Negative Staph Home Medications: Medications to take at Discharge Atorvastatin Calcium [Lipitor] 40 mg PO QHS 02/14/15 Cholecalciferol (Vitamin D3) [D3-2000] 1,000 units PO DAILY 02/14/15 Gabapentin [Neurontin] 300 mg PO TID 02/14/15 Lisinopril/Hydrochlorothiazide [Zestoretic 20/12.5 Tablet] 1 tablet PO DAILY 02/14/15 Metformin HCl [Glucophage] 1,000 mg PO BIDCM 02/14/15 glipiZIDE [Glucotrol] 10 mg PO DAILY 02/14/15 Clindamycin HCl 300 mg PO TID 03/18/18 Escitalopram Oxalate [Lexapro] 10 mg PO DAILY 03/18/18 Primary Care Physician: Rolando Shelton MD [Primary Care Provider] - Disposition: Acute care Hospital Minutes spent on discharge:: 33 Patient Condition:: Stable Medical Necessity - Tobacco Use Smoking Status: Current every day smoker Tobacco Use: Cigarettes Meaningful Use Info Meaningful Use Diagnoses (Choose all that apply): None applicable Code Visit Inpatient E&M: 23133 Disch Hosp
--- NOTE | 2018-03-22 07:19 | DS.PCM_ITS ---
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 #2 peripheral vascular disease secondary to type 2 diabetes #3 type 2 diabetes-under poor control #4 chronic kidney disease stage III secondary to type 2 diabetes - Secondary Discharge Diagnosis Chronic Problems (Last Updated 03/19/18 @ 05:39 by Willi Cruz MD) Diabetes (Chronic) CKD (chronic kidney disease) stage 3, GFR 30-59 ml/min (Chronic) Hospital Course and Treatment Consultations 03/19/18 00:49 Consult: Onc/Wound/sales promotion manager Routine Comment: Operations: None Procedures: None Summary of Care Provided: The patient is a 67 year old M was seen in the emergency room at [facility] with chief complaint of blackness of his right great toe over period of several days. Evaluation of the patient included lab work which showed a white blood cell count of 12.7, BUN was elevated at 34 and creatinine was elevated at 1.74, glucose was 344. Patient was given IV Ancef in the emergency room, wound cultures were obtained, x-ray of the right foot did not show any evidence of osteomyelitis. Hospitalist service admitted the patient to [place] [address], he was seen in consultation by podiatry, due to his history of peripheral vascular disease, podiatry felt that a vascular surgery consultation was needed, he had been seen previously at [facility], podiatry felt uncomfortable operating on the patient without vascular guidance. Due to this fact, patient was transferred to [facility] for further care. Patient was seen and examined on 03/19/18: On examination he appeared in good health and spirits. Vital signs as documented. Skin warm and dry and without overt rashes. Neck without JVD. Lungs clear. Heart exam notable for regular rhythm, normal sounds and absence of murmurs, rubs or gallops. Abdomen unremarkable and without evidence of organomegaly, masses, or abdominal aortic enlargement. Extremities: The right great toe is necrotic with evidence of dry gangrene. Neuro: Cranial nerves II through XII are grossly intact, there are no focal motor deficits noted. Psych: Patient was alert and oriented x3 and in no distress, he did not appear depressed or anxious On 03/19/18, patient was transferred to [facility] for further care.. - Physical Exam Vital Signs Temp Pulse Resp BP Pulse Ox 97.4 F L 90 18 113/67 96 03/19/18 20:28 03/19/18 20:28 03/19/18 20:28 03/19/18 20:28 03/19/18 20:28 Oxygen Delivery Method Room Air Weight: 56.2 kg Body Mass Index (BMI) 17.7 Microbiology Past 72 Hours 03/19/18 01:21 Blood Culture - Preliminary Blood Culture (Wb) - Anticubital Right No growth in 48 hours. 03/19/18 01:13 Blood Culture - Preliminary Blood Culture (Wb) - Left Hand No growth in 48 hours. 03/18/18 21:10 Gram Stain - Final Wound Abcess - Toe Wound Culture - Final Enterococcus faecalis Coag Negative Staph Home Medications: Medications to take at Discharge Atorvastatin Calcium [Lipitor] 40 mg PO QHS 02/14/15 Cholecalciferol (Vitamin D3) [D3-2000] 1,000 units PO DAILY 02/14/15 Gabapentin [Neurontin] 300 mg PO TID 02/14/15 Lisinopril/Hydrochlorothiazide [Zestoretic 20/12.5 Tablet] 1 tablet PO DAILY 02/14/15 Metformin HCl [Glucophage] 1,000 mg PO BIDCM 02/14/15 glipiZIDE [Glucotrol] 10 mg PO DAILY 02/14/15 Clindamycin HCl 300 mg PO TID 03/18/18 Escitalopram Oxalate [Lexapro] 10 mg PO DAILY 03/18/18 Primary Care Physician: Rolando Shelton MD [Primary Care Provider] - Disposition: Acute care Hospital Minutes spent on discharge:: 33 Patient Condition:: Stable Medical Necessity - Tobacco Use Smoking Status: Current every day smoker Tobacco Use: Cigarettes Meaningful Use Info Meaningful Use Diagnoses (Choose all that apply): None applicable Code Visit Inpatient E&M: 45731 Disch Hosp
== END 2018-03-19 22:33 | disposition short-term general hospital (02) | DRG 300 ==
LOC: ED 20:59 → MS3 23:37
PROVIDERS: Admitting Provider Hospitalist; Emergency Provider Emergency Medicine; Family Provider Family Medicine; PCP Family Medicine; Referring Provider Hospitalist; Visit Provider Internal Medicine
DX: E11.52 Type 2 diabetes mellitus with diabetic peripheral angiopathy with gangrene (principal); I96 Gangrene, not elsewhere classified; Z68.1 Body mass index [BMI] 19.9 or less, adult; E46 Unspecified protein-calorie malnutrition; E11.65 Type 2 diabetes mellitus with hyperglycemia; Z79.84 Long term (current) use of oral hypoglycemic drugs; E11.22 Type 2 diabetes mellitus with diabetic chronic kidney disease; N18.3 Chronic kidney disease, stage 3 (moderate); I12.9 Hypertensive chronic kidney disease with stage 1 through stage 4 chronic kidney disease, or unspecified chronic kidney disease; Z23 Encounter for immunization
CPT/HCPCS: 36415; 73630; 80048; 82962; 83036; 85025; 85610; 85730; 86140; 87040; 87070; 87186; 87205; 93923; 97162; 97165; 99282; J7030; J7040; J7050; 90686; A4216

== ENCOUNTER → 2018-07-05 12:50 | Outpatient (CLI) | payer MEDICARE, OTHER, SELFPAY ==
[2018-03-19 00:50] VITALS: BMI 17.7
== END ==
PROVIDERS: Family Provider Family Medicine; PCP Family Medicine
DX: I73.9 Peripheral vascular disease, unspecified (principal); T81.49XA Infection following a procedure, other surgical site, initial encounter; A04.72 Enterocolitis due to Clostridium difficile, not specified as recurrent
CPT/HCPCS: 36415; 87040

== ENCOUNTER 2018-09-07 18:17 | Emergency (ER) | payer MEDICARE, OTHER, SELFPAY ==
[2018-09-07 18:18] VITALS: BP 115/75; PULSE 102; RESP 17; TEMP 36.3; O2SAT 94; BMI 22.7
--- NOTE | 2018-09-07 21:15 | ED.DCSUM_ITS ---
- ER Visit Summary Date of Service: 09/07/18 Chief Complaint: Right ear foreign body History of Present Illness: The patient is a 68 M your canal. He does have a history of diabetes and hypertension. Denies any other issues. Physical Examination: Well-appearing older male. Vital signs are stable and afebrile. H EENT exam foreign body left ear canal consistent with a piece of his hearing aid. Right ear canal unremarkable. Neck nontender. Lungs clear to auscultation. Heart regular rhythm no murmur. Abdomen soft nontender. Patient is moving all 4 extremities. Calves are nontender. Test Results: None Emergency Department Course and Treatment: With a pair of forceps I was able to remove the foreign body without any difficulty. No trauma no bleeding occurred. Patient tolerated procedure well. Treatment Plan: Follow-up with his doctor as needed. Disposition: Discharge Impression: Left ear foreign body (a piece of his hearing aid) removed by ER This note was generated with [employer] dictation software. It may contain incorrect words, spelling, and punctuation that were not noted in review of the chart prior to signing ED Disposition - Plan for ED Patient: Referrals: Rolando Shelton MD [Primary Care Provider] -
--- NOTE | 2018-09-07 21:15 | ED.DEP ---
ED Disposition - Plan for ED Patient: Disposition: Home or Assisted Living Instructions: ED Foreign Body Ear Canal Referrals: Rolando Shelton MD [Primary Care Provider] - As Needed Additional Instructions: All up with your doctor if you start having ear pain, swelling or bleeding. I do not expect these to happen and came out without any problem.
[2018-09-07 21:26] VITALS: BP 164/93; PULSE 87; RESP 18; O2SAT 99
== END 2018-09-07 21:28 | disposition home or self-care (01) ==
PROVIDERS: Emergency Provider Emergency Medicine; Family Provider Family Medicine; PCP Family Medicine
DX: T16.2XXA Foreign body in left ear, initial encounter (principal); X58.XXXA Exposure to other specified factors, initial encounter; Y93.9 Activity, unspecified; Y92.9 Unspecified place or not applicable; Y99.9 Unspecified external cause status; E11.9 Type 2 diabetes mellitus without complications; I10 Essential (primary) hypertension; Z72.0 Tobacco use; Z79.84 Long term (current) use of oral hypoglycemic drugs; Z79.899 Other long term (current) drug therapy
CPT/HCPCS: 99283

== ENCOUNTER → 2018-10-23 09:51 | Outpatient (CLI) | payer MEDICARE, OTHER, SELFPAY ==
[2018-10-23 12:40] LABS: Anion Gap 9 (5-15); BUN 26 mg/dL (7-18); Calcium,Total 9.3 mg/dL (8.5-10.1); Chloride 106 mmol/L (98-107); Cholesterol 159 mg/dL (200); EST Glomerular Filtration Rate 58 mL/min (>60); Est Glom Filt Rate - Afr Amer 70 mL/min (>60); Glucose 104 mg/dL (74-106); High Density Lipoprotein 39 mg/dL; Potassium 4.3 mmol/L (3.5-5.1); Sodium Level 142 mmol/L (136-145); Triglycerides 243 mg/dL; Very Low Density Lipoprotein 49 mg/dL (5-40)
[2018-10-23 12:49] LABS: Hemoglobin A1c 9.4 % (4.2-6.3)
== END ==
PROVIDERS: Family Provider Family Medicine; PCP Family Medicine; Visit Provider Family Medicine
DX: E11.9 Type 2 diabetes mellitus without complications (principal); I10 Essential (primary) hypertension
CPT/HCPCS: 36415; 80048; 80061; 83036